=== PATIENT | male | born 1985 | race African-American/Black ===

== ENCOUNTER 2017-02-04 11:54 | Inpatient (IN) | payer OTHER ==
[~2017-02-04] VITALS: Ht 170.2 cm; Wt 87.9 kg
[2017-02-04 13:32] VITALS: BP 117/77; PULSE 104; TEMP 97.6
[2017-02-04] MEDS ORDERED: NAPROXEN 3375 MG/TAB PO (13:34)
[2017-02-04] MEDS ORDERED: TYLENOL 500MG500 MG PO (13:34)
[2017-02-04 16:12] VITALS: BP 120/86; PULSE 104; TEMP 97.8
[2017-02-04 20:11] VITALS: BP 102/58; PULSE 91; TEMP 97.6
[2017-02-04 22:42] VITALS: BP 93/69; PULSE 90; TEMP 97.6
[2017-02-05] VITALS (7 sets, daily range): BP systolic 95–117; BP diastolic 57–76; PULSE 68–181; TEMP 96.9–97.8
[2017-02-05 07:58] LABS: ADJUSTED CALCIUM 9.1 mg/dL (8.4-10.2); ALBUMIN 3.1 gm/dL (3.5-5.0); BILIRUBIN,TOTAL 1.8 mg/dL (0.0-1.0); CALCIUM 8.4 mg/dL (8.4-10.2); CREATININE, serum 1.16 mg/dL (0.66-1.25); MAGNESIUM 1.6 mg/dL (1.6-2.3); POTASSIUM 4.3 mmol/L (3.4-5.0); TOTAL PROTEIN 5.3 gm/dL (6.4-8.2)
[2017-02-05 08:06] LABS: TROPONIN-I 0.022 ng/mL (0.000-0.034)
[2017-02-06 03:46] VITALS: BP 94/65; PULSE 82; TEMP 97.4
[2017-02-06 07:23] VITALS: BP 89/62; PULSE 85; TEMP 97.4
[2017-02-06 09:09] LABS: ADJUSTED CALCIUM 9.3 mg/dL (8.4-10.2); BILIRUBIN,TOTAL 1.1 mg/dL (0.0-1.0); CALCIUM 8.5 mg/dL (8.4-10.2); CREATININE, serum 1.28 mg/dL (0.66-1.25); TOTAL PROTEIN 5.2 gm/dL (6.4-8.2)
[2017-02-06] MEDS ORDERED: LOPRESSOR 225 MG/TAB PO (10:51)
[2017-02-06] MEDS ORDERED: ZESTRIL 5MG5 MG PO (10:52)
[2017-02-06] MEDS ORDERED: LASIX 40MG TABL40 MG PO (10:52)
[2017-02-06 11:57] VITALS: BP 89/68; PULSE 93
[2017-02-06 12:52] VITALS: BP 93/68; PULSE 86
[2017-02-06 14:59] VITALS: BP 89/62; PULSE 85; TEMP 97.5
== END 2017-02-06 16:04 | disposition home or self-care (01) | DRG 315 ==
LOC: MEDICAL 11:54 → EDBD 13:00 → MEDICAL 13:00
PROVIDERS: Internal Medicine; Physician Assistant
DX: I42.9 Cardiomyopathy, unspecified (principal); J90 Pleural effusion, not elsewhere classified
CPT/HCPCS: 99223-AI; 99232-AI; 99239; J1650; J2405